=== PATIENT | female | born 1980 | race Caucasian/White ===

== ENCOUNTER 2017-01-25 16:22 | Emergency (ER) | payer SELFPAY ==
[~2017-01-25] VITALS: Ht 152.4 cm; Wt 61.0 kg
[2017-01-25 16:32] VITALS: BP 135/77
== END 2017-01-26 01:25 | disposition left against medical advice (07) ==
LOC: ER 01-26 00:17
DX: R06.02 Shortness of breath (principal); Z53.21 Procedure and treatment not carried out due to patient leaving prior to being seen by health care provider